=== PATIENT | male | born 1940 | race African-American/Black ===

== ENCOUNTER 2017-09-12 04:18 | Observation (INO) | payer MEDICARE, OTHER ==
--- NOTE | 2017-09-12 05:01 | ER Document Report ---
Doctor's Note Notes: 09/12/17 04:57 I performed a quick triage evaluation the patient. Patient is a pleasant 77- year-old male who initially just tells me that he has hearing loss in left ear they woke up with around 3 AM morning this morning. He went to bed normal around 10 PM. Patient's on exam did not show some signs of little bit of left leg weakness in comparison to the right side. He is hard time telling me whether not this is new. Speech is slightly slow but he is able to make sense and is not quite slurring his words. His family members and walks in the room and tells me that his gait is off, but she is also noticed some left-sided weakness, and that his speech is not normal for him at all. He does have previous history of stroke in the past. He does mention that he did have some numbness when he woke up around 3 AM however this has improved some per his history. Patient is showing some strokelike symptoms however he is outside thrombolytic window. His NIH scale is only a 2. Patient denies any pain at this time. I have ordered a CT scan of the head as well as blood work for initial workup. Cranial nerves are intact with exception of his hearing loss in left ear. Patient has unsteady gait. Patient does walk with a cane at baseline but though family member in the room says that it is more unsteady than usual. 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 He is able to keep both arms and both legs elevated off the bed but he does have some shakiness when he lifts his left leg off the bed and that is obviously weaker on the left side in comparison to the right in regards to his lower extremities. Dictation of this chart was performed using voice recognition software; therefore, there may be some unintended grammatical errors.
--- NOTE | 2017-09-12 05:02 | ER Document Report ---
ED NIH Stroke Scale - NIH Stroke Scale *: 1. NIH scale should be completed with appropriate accompanying assessment tools. *: 2. The NIH should reflect what the patient is capable of doing and should not be coached by the clinician. 1a. Level of Consciousness: 0=Alert;keenly responsive -: 1=Drowsy -: 2=Obtunded -: 3=Coma/unresponsive or reflex to noxious stimuli. 1a. Responses: 0 1b. Orientation Questions: a. What month is it? -: b. How old are you? -: 0=Answers both questions correctly. -: 1=Answers one question correctly or patient is intubated or has orotracheal trauma. -: 2=Answers neither question correctly. 1b. Responses: 0 1c. Response to commands: a. Open and close eyes? -: b. Occupational Hygienist and release hand? -: Credit is given despite weakness. Demonstration of task is permitted. Substitute command if hands cannot be used. -: 0=Performs both tasks correctly -: 1=Performs one task correctly -: 2=Performs neither task correctly 1c. Responses: 0 2. Gaze: Establish eye contact and instruct patient to "Follow my finger" -: 0=Normal -: 1=Partial gaze palsy. Gaze is abnormal in one or both eyes, but where forced deviation or total gaze paresis is not present. -: 2=Forced deviation or total gaze paresis. 2. Responses: 0 3. Visual Hankins: Sees fingers in all four quadrants. -: 0=No visual loss. -: 1=Partial hemianopsia. -: 2=Complete hemianopsia. -: 3=Bilateral hemianopsia (including Cortical blindness) 3. 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 Facial Movement: Instruct patient to: -: a. Show me your teeth -: b. Raise your eyebrows -: c. Close your eyes -: d. Smile -: 0=Normal symmetrical movement -: 1=Minor paralysis (flattened nasolabial fold, asymmetry on smiling). -: 2=Partial paralysis (total or near total paralysis of lower face). -: 3=Complete paralysis of upper and lower face 4. Responses: 0 5. Motor functions (left arm): Alternate sides and extend each arm with palms down (90 degrees if sitting or 45 degrees for supine). -: 0=No drift;limb holds for full 10 seconds. -: 1=Drift; limb holds but drifts down before full 10 seconds, but does not hit bed. -: 2=Some effort against gravity; limb cannot get to or maintain position. -: 3=No effort against gravity; limb falls. -: 4=No movement. -: UN=Amputation, joint fusion, explain in comments. 5. Responses (left arm): 0 5. Motor Functions (right arm): Alternate sides and extend each arm with palms down (90 degrees if sitting or 45 degrees for supine). -: 0=No drift;limb holds for full 10 seconds. -: 1=Drift; limb holds but drifts down before full 10 seconds, but does not hit bed. -: 2=Some effort against gravity; limb cannot get to or maintain position. -: 3=No effort against gravity; limb falls. -: 4=No movement. -: UN=Amputation, joint fusion, explain in comments. 5. Responses (right arm): 0 6. Motor Functions (left leg): With patient lying supine, alternate sides and extend each leg (30 degrees always while supine). -: 0=No drift, leg holds position for full 5 seconds -: 1=Drift; leg falls before full 5 seconds but does not hit bed. -: 2=Some effort against gravity, leg falls to bed but some effort against gravity. -: 3=No effort against gravity, leg falls to bed immediately. -: 4=No movement. -: UN=Amputation, joint fusion; explain in comments. 6. Responses (left leg): 0 6. Motor Functions (right leg): With patient lying supine, alternate sides and extend each leg (30 degrees always while supine). -: 0=No drift, leg holds position for full 5 seconds -: 1=Drift; leg falls before full 5 seconds but does not hit bed. -: 2=Some effort against gravity, leg falls to bed but some effort against gravity. -: 3=No effort against gravity, leg falls to bed immediately. -: 4=No movement. -: UN=Amputation, joint fusion; explain in comments. 6. Responses (right leg): 0 7. Limb Ataxia: With eyes open instruct patient to: -: a. "Touch your finger to your nose". -: b. "Touch your heel to your rizvi" -: 0=Absent -: 1=Present in one limb. -: 2=Present in two limbs. -: UN=Amputation or joint fusion; explain in comments. 7. Responses: 0 8. Sensory: Test sensation using pinprick or noxious stimuli. Test as many body parts as possible. -: 0=Normal;no sensory loss -: 1=Mile to moderate sensory loss (patient feels pin prick but is less sharp on affected side). -: 2=Severe or total sensory loss. 8. Responses: 0 9. Best Language: Instruct patient to: -: a. "Describe what you see in this picture." -: b. "Name the items in this picture." -: c. "Read these sentences." -: 0=No aphasia, normal -: 1=Mild to moderate aphasia. -: 2=Severe aphasia -: 3=Mute, global aphasia, no usable speech or auditory comprehension. 9. Responses: 1 10. Articulation, Dysarthia: Instruct patient to: -: "Read these words" or "Repeat these words" -: 0=Normal -: 1=Mild to moderate; patient may slur some words but can be understood without difficulty. -: 2=Severe; patients speech so slurred as to be unintelligible in the absence of dysphasia. -: UN=Intubated or other physical barrier, explain in comments. 10. Responses: 1 11. Extinction or inattention: 0=No abnormality -: 1= Visual, tactile, auditory, spatial, or personal inattention or extinction to bilateral simulation in one or the sensory modalities. -: 2=Profound cindy-inattention or cindy-inattention to more than one modality; does not recognize own hand. 11. Responses: 0 Total Score: 2
--- NOTE | 2017-09-12 06:06 | RADIOLOGY REPORT (SQ) ---
EXAM DESCRIPTION: CT HEAD WITHOUT IV CONTRAST COMPLETED DATE/TME: 09/12/2017 04:53 CLINICAL HISTORY: 77 years Male, left sided numbness COMPARISON: None. TECHNIQUE: No contrast. Coronal and sagittal reformat. This exam was performed according to our departmental dose-optimization program, which includes automated exposure control, adjustment of the mA and/or kV according to patient size and/or use of iterative reconstruction technique. FINDINGS: No hemorrhage or infarct. No mass, mass effect, or midline shift. Atherosclerosis, moderate left maxillary mucosal occlusion with high attenuation component suggesting fungal superinfection. Decompressed left ocular globe with coarse calcification. 1.7 cm right maxillary retention cyst-mucocele. Brain and extra-axial structures appear otherwise intact. IMPRESSION: Chronic left maxillary sinusitis with fungal superinfection.
[2017-09-12 06:09] LABS: INTERNATIONAL RATION (INR) 0.96; PARTIAL THROMBOPLASTIN TIME 28.9 SEC (23.5-35.8); PROTHROMBIN TIME 13.3 SEC (11.4-15.4)
[2017-09-12 06:21] LABS: ALANINE AMINOTRANSFERASE 24 U/L (21-72); ALBUMIN 3.5 g/dL (3.5-5.0); ALKALINE PHOSPHATASE 55 U/L (38-126); ANION GAP 9 (5-19); ASPARTATE AMINO TRANSFERASE 25 U/L (17-59); BILIRUBIN,DIRECT 0.4 mg/dL (0.0-0.4); BILIRUBIN,TOTAL 0.5 mg/dL (0.2-1.3); BLOOD UREA NITROGEN 36 mg/dL (7-20); CALCIUM 8.6 mg/dL (8.4-10.2); CARBON DIOXIDE 28 mmol/L (22-30); CHLORIDE 106 mmol/L (98-107); GLUCOSE 205 mg/dL (75-110); POTASSIUM 4.2 mmol/L (3.6-5.0); SODIUM 143.4 mmol/L (137-145); TOTAL PROTEIN 7.1 g/dL (6.3-8.2)
--- NOTE | 2017-09-12 06:21 | ER Document Report ---
ED Neuro Symptoms/Deficit - General Chief Complaint: Numbness of Face Stated Complaint: LEFT SIDE NUMB Time Seen by Provider: 09/12/17 04:53 Mode of Arrival: Ambulatory Information source: Patient Notes: 77-year-old male presents emergency department with complaints of left-sided numbness and tingling to the left face, left upper extremity left lower extremity. Patient also complains of left-sided weakness to the left upper extremity and left lower extremity. Patient's significant other is stating that he also has some slurred speech. Patient also notes L hearing loss. Patient states that he went to bed around 10 PM and was normal at that time. He states that he woke up at 3 AM with the symptoms. Patient does have a history of a previous stroke. He states that it affected the right side. He states that he does not take any aspirin. Patient is outside the thrombolytic window. Stroke scale of 2. Denies any pain. TRAVEL OUTSIDE OF THE [place] IN LAST 30 DAYS: No - HPI Patient complains to provider of: Paresthesia, Speech Impairment, Weakness Onset: This morning Awoke with symptoms: Yes Symptoms are: Noted on awakening Duration: Better Quality of pain: No pain Severity: None Pain Level: Denies Context: None Loss of consciousness: No loss of consciousness Was STROKE ALERT Called: No Baseline Cognitive: Alert, oriented X 3 Baseline Gait: Uses a cane/walker Alert To: Name/Voice Patient Orientation: Person New weakness: LUE, LLE Altered sensation: LUE, LLE, L facial Decreased ability to stand/walk: Off balance Impaired speech/swallowing: Difficult Vision problem/glaucoma: No Associated symptoms: None Similar symptoms previously: No Recently seen / treated by doctor: No - Related Data Allergies/Adverse Reactions: No Known Allergies Allergy (Verified 09/12/17 07:07) Past Medical History - Social History Smoking Status: Never Smoker Chew tobacco use (# tins/day): No Frequency of alcohol use: None Drug Abuse: None Family History: Reviewed & Not Pertinent Patient has suicidal ideation: No Patient has homicidal ideation: No - Past Medical History Cardiac Medical History: Reports: Hx Hypertension Denies: Hx Heart Attack Pulmonary Medical History: Denies: Hx Asthma Neurological Medical History: Denies: Hx Cerebrovascular Accident, Hx Seizures Endocrine Medical History: Reports: Hx Diabetes Mellitus Type 2 Renal/ Medical History: Reports: Hx Renal Insufficiency. Denies: Hx Peritoneal Dialysis GI Medical History: Denies: Hx Hepatitis, Hx Hiatal Hernia, Hx Ulcer Infectious Medical History: Denies: Hx Hepatitis Past Surgical History: Denies: Hx Open Heart Surgery, Hx Pacemaker - Immunizations Hx Diphtheria, Pertussis, Tetanus Vaccination: Yes Review of Systems - Review of Systems Constitutional: No symptoms reported EENT: No symptoms reported Cardiovascular: No symptoms reported Respiratory: No symptoms reported Gastrointestinal: No symptoms reported Genitourinary: No symptoms reported Male Genitourinary: No symptoms reported Musculoskeletal: No symptoms reported Skin: No symptoms reported Neurological/Psychological: Weakness, Gait changes, Speech impairment, Numbness -: Yes All other systems reviewed and negative Physical Exam - Vital signs Vitals: Temp Pulse Resp BP Pulse Ox 98.2 F 66 16 148/59 H 99 09/12/17 04:32 09/12/17 04:32 09/12/17 04:32 09/12/17 04:32 09/12/17 04:32 Interpretation: Normal - Notes Notes: PHYSICAL EXAMINATION: GENERAL: Well-appearing, well-nourished and in no acute distress. HEAD: Atraumatic, normocephalic. EYES: Pupils equal round and reactive to light, extraocular movements intact, sclera anicteric, conjunctiva are normal. ENT: Nares patent, oropharynx clear without exudates. Moist mucous membranes. NECK: Normal range of motion, supple without lymphadenopathy LUNGS: Breath sounds clear to auscultation bilaterally and equal. No wheezes rales or rhonchi. HEART: Regular rate and rhythm without murmurs ABDOMEN: Soft, nontender, nondistended abdomen. No guarding, no rebound. No masses appreciated. Musculoskeletal: Normal range of motion, no pitting or edema. No cyanosis. NEUROLOGICAL: Cranial nerves intact except for decreased hearing in the L ear. Significant other notes slurred speech. Normal sensory, motor exams. Cerebellar testing normal. PSYCH: Normal mood, normal affect. SKIN: Warm, Dry, normal turgor, no rashes or lesions noted. Course - Re-evaluation Re-evalutation: 09/12/17 07:[address] shows chronic sinusitis with superimposed fungal infection. On re- evaluation, patient says his symptoms have resolved. No complaints of facial pain. No maxillary sinus tenderness. I contacted Dr. Louis. He would like MRI/ MRA of the head done. Start on augmentin. Hold anti-fungals until MRI/MRA read. He will admit the patient. - Vital Signs Vital signs: Temp Pulse Resp BP Pulse Ox 98.2 F 66 16 148/59 H 99 09/12/17 04:32 09/12/17 04:32 09/12/17 04:32 09/12/17 04:32 09/12/17 04:32 - Laboratory Result Diagrams: 09/12/17 05:54 09/12/17 05:54 Laboratory results interpreted by me: 09/12/17 09/12/17 09/12/17 05:54 05:54 06:06 RBC 4.10 L Hgb 12.7 L Hct 37.1 L RDW 14.7 H BUN 36 H Creatinine 1.83 H Est GFR ( Amer) 44 L Est GFR (Non-Af Amer) 36 L Glucose 205 H Urine Ascorbic Acid 40 H - EKG Interpretation by Me Additional EKG results interpreted by me: 09/12/17 06:35 EKG: Ventricular rate 58, [place] interval 232, castration 114, QTc 433, sinus rhythm , first-degree AV block, left anterior fascicular block. Discharge - Discharge Clinical Impression: TIA (transient ischemic attack), Fungal sinusitis Condition: Stable Disposition: ADMITTED INPATIENT Admitting Provider: Louis Unit Admitted: [facility]
--- NOTE | 2017-09-12 06:28 | RADIOLOGY REPORT (SQ) ---
EXAM DESCRIPTION: XR CHEST 1 VIEW COMPLETED DATE/TME: 09/12/2017 04:54 CLINICAL HISTORY: 77 years Male, stroke like symptoms, weakness COMPARISON: 9.1.16 NUMBER OF VIEWS/TECHNIQUE: 1/AP FINDINGS: Adequate lung volume, clear parenchyma, normal cardiac silhouette, and intact bony thorax. IMPRESSION: No acute cardiopulmonary findings.
[2017-09-12 06:37] LABS: ABSOLUTE LYMPHOCYTES (AUTO) 1.3 10^3/uL (0.5-4.7); ABSOLUTE MONOCYTES (AUTO) 0.4 10^3/uL (0.1-1.4); ABSOLUTE NEUT (AUTO) 5.3 10^3/uL (1.7-8.2); BASOPHILS % (AUTO) 0.3 % (0-2); EOSINOPHILS % (AUTO) 0.5 % (0-6); HEMATOCRIT 37.1 % (37.9-51.0); HEMOGLOBIN 12.7 g/dL (13.5-17.0); LYMPHOCYTES % (AUTO) 18.8 % (13-45); MEAN CORPUSCULAR HEMOGLOBIN 31.1 pg (27.0-33.4); MEAN CORPUSCULAR HGB CONC 34.3 g/dL (32.0-36.0); MEAN CORPUSCULAR VOLUME 91 fl (80-97); MONOCYTES % (AUTO) 6.2 % (3-13); PLATELET COUNT 150 10^3/uL (150-450); RED CELL DISTRIBUTION WIDTH 14.7 % (11.5-14.0); SEGMENTED NEUTROPHILS % (AUTO) 74.2 % (42-78); TOTAL CELLS COUNTED % (AUTO) 100 %; WHITE BLOOD COUNT 7.1 10^3/uL (4.0-10.5)
[2017-09-12 07:00] LABS: APPEARANCE,URINE CLEAR; BILIRUBIN,URINE NEGATIVE (NEGATIVE); COLOR,URINE YELLOW; GLUCOSE, URINE NEGATIVE (NEGATIVE); KETONES,URINE NEGATIVE (NEGATIVE); LEUKOCYTE ESTERASE,URINE NEGATIVE (NEGATIVE); NITRITE,URINE NEGATIVE (NEGATIVE); PROTEIN,URINE NEGATIVE (NEGATIVE); URINE SPECIFIC GRAVITY 1.017; UROBILINOGEN,URINE NEGATIVE mg/dL (<2.0)
[2017-09-12] MEDS ORDERED: AMOXICILLIN TR/POT CLAVULANATE 500-125 MG TAB PO ONE (08:05)
[2017-09-12] MEDS ORDERED: ACETAMINOPHEN 325 MG TABLET PO PRN (10:17)
--- NOTE | 2017-09-12 10:36 | EKG REPORT ---
SEVERITY:- ABNORMAL ECG - SINUS RHYTHM FIRST DEGREE AV BLOCK LEFT ANTERIOR FASCICULAR BLOCK : Confirmed by: Cas Simeon MD 12-Sep-2017 10:36:05
[2017-09-12] MEDS ORDERED: INSULIN LISPRO 100 UNIT/ML 3 ML VIAL SUBCUT PRN (10:59)
[2017-09-12] MEDS ORDERED: DEXTROSE 50%-WATER 25 GM/50 ML DISP.SYRIN IV PRN ×2 (10:59)
[2017-09-12] MEDS ORDERED: GLUCAGON,HUMAN RECOMB 1 MG INJ IM PRN (10:59)
[2017-09-12] MEDS ORDERED: DEXTROSE 40% GEL 15 GM TUBE PO PRN ×2 (10:59)
--- NOTE | 2017-09-12 11:08 | PDOC H&P ---
History of Present Illness Admission Date/PCP: 09/12/17 07:57 YO CHINCHILLA MD Patient complains of: Left-sided tingling and numbness History of Present Illness: NAN SUAZO is a 77 year old male This is a 77-year-old male patient of Dr. Chinchilla with the history of the hypertension type 2 diabetes mellitus chronic kidney disease in the history of the TIA in the past noticed at 3:00 in the morning on the left side of the face with a tingling numbness and some fullness and according to the patient his noticed that patient's speech is slower and patients noticed some weakness in the left side came to the emergency department on the patient's symptoms pretty much all resolved except patient's noticed some fullness in the left side of the face Patient had a CT scan of the head was done which is negative for any acute stroke but noticed some left chronic sinus problem with some superinfections and mastoid issues Patient's denied any fever no chills Patient's denied any chest pain no shortness of the breath Is denied any eye problems except patient have a very poor vision on the left side of the eye from the long time but nothing new Patient's other than that when I saw on the floor in IMCU very pleasant alert awake oriented no neurological weakness Past Medical History Cardiac Medical History: Reports: Hypertension Denies: Myocardial Infarction Pulmonary Medical History: Denies: Asthma Neurological Medical History: Reports: Ischemic CVA Denies: Seizures Endocrine Medical History: Reports: Diabetes Mellitus Type 2 Renal/ Medical History: Reports: Chronic Kidney Disease GI Medical History: Reports: Gastroesophageal Reflux Disease Denies: Hepatitis, Hiatal Hernia Hematology: Denies: Anemia, Sickle Cell Disease Past Surgical History Past Surgical History: Denies: Pacemaker Social History Smoking Status: Never Smoker Frequency of Alcohol Use: None Hx Recreational Drug Use: No Hx Prescription Drug Abuse: No - Advance Directive Resuscitation Status: Full Code Family History Family History: Reviewed & Not Pertinent Parental Family History Reviewed: Yes Children Family History Reviewed: Yes Sibling(s) Family History Reviewed.: Yes Medication/Allergy Home Medications: Brimonidine Tartrate/Timolol [Combigan 0.2%-0.5% Eye Drops] 1 drop OD Q12 Carvedilol [Coreg 12.5 mg Tablet] 12.5 mg PO Q12 09/12/17 Ergocalciferol (Vitamin D2) [Vitamin D2] 50,000 unit PO TU@1000 09/12/17 Febuxostat [Uloric 80 mg Tablet] 80 mg PO DAILY 09/12/17 Furosemide [Lasix 40 mg Tablet] 40 mg PO QAM 09/12/17 Latanoprost [Xalatan 0.005% Oph Soln 2.5 ml] 1 drop OD QPM 09/12/17 Losartan/Hydrochlorothiazide [Losartan-Hctz 100-25 mg Tab] 1 tab PO DAILY Pioglitazone HCl [Actos] 45 mg PO DAILY 09/12/17 Sitagliptin Phosphate [Januvia] 100 mg PO DAILY 09/12/17 Allergies/Adverse Reactions: No Known Allergies Allergy (Verified 09/12/17 07:07) Review of Systems Constitutional: PRESENT: weakness. ABSENT: chills, fever(s), headache(s), weight gain, weight loss Eyes: ABSENT: visual disturbances Ears: ABSENT: hearing changes Cardiovascular: ABSENT: chest pain, dyspnea on exertion, edema, orthropnea, palpitations Respiratory: ABSENT: cough, hemoptysis Gastrointestinal: ABSENT: abdominal pain, constipation, diarrhea, hematemesis, hematochezia, nausea, vomiting Genitourinary: ABSENT: dysuria, hematuria Musculoskeletal: ABSENT: joint swelling Integumentary: ABSENT: rash, wounds Neurological: ABSENT: abnormal gait, abnormal speech, confusion, dizziness, focal weakness, syncope Psychiatric: ABSENT: anxiety, depression, homidical ideation, suicidal ideation Endocrine: ABSENT: cold intolerance, heat intolerance, menstrual abnormalities, polydipsia, polyuria Hematologic/Lymphatic: ABSENT: easy bleeding, easy bruising, lymphadenopathy Physical Exam Vital Signs: Temp Pulse Resp BP Pulse Ox 98.4 F 56 L 13 147/69 H 100 09/12/17 10:45 09/12/17 10:45 09/12/17 10:45 09/12/17 10:45 09/12/17 10:45 Intake & Output 09/11/17 09/12/17 09/13/17 06:59 06:59 06:59 Weight 122.8 kg General appearance: PRESENT: no acute distress, well-developed, well-nourished Head exam: PRESENT: atraumatic, normocephalic Eye exam: PRESENT: conjunctiva pink, EOMI, PERRLA. ABSENT: scleral icterus Ear exam: PRESENT: normal external ear exam Mouth exam: PRESENT: moist, tongue midline Neck exam: PRESENT: full ROM. ABSENT: carotid bruit, JVD, lymphadenopathy, thyromegaly Respiratory exam: PRESENT: clear to auscultation manisha Cardiovascular exam: PRESENT: RRR. ABSENT: diastolic murmur, rubs, systolic murmur Pulses: PRESENT: normal dorsalis pedis pul, +2 pedal pulses bilateral Vascular exam: PRESENT: normal capillary refill GI/Abdominal exam: PRESENT: normal bowel sounds, soft. ABSENT: distended, guarding, mass, organolmegaly, rebound, tenderness Rectal exam: PRESENT: deferred Extremities exam: ABSENT: pedal edema Musculoskeletal exam: PRESENT: ambulatory Neurological exam: PRESENT: alert, awake, oriented to person, oriented to place , oriented to time, oriented to situation, reflexes normal, CN II-XII grossly intact. ABSENT: motor sensory deficit Psychiatric exam: PRESENT: appropriate affect, normal mood. ABSENT: homicidal ideation, suicidal ideation Skin exam: PRESENT: dry, intact, warm. ABSENT: cyanosis, rash Results Impressions: Head CT 09/12/17 04:53 IMPRESSION: Chronic left maxillary sinusitis with fungal superinfection. Chest X-Ray 09/12/17 04:54 IMPRESSION: No acute cardiopulmonary findings. Assessment & Plan - Diagnosis (1) TIA (transient ischemic attack) Is this a current diagnosis for this admission?: Yes Plan: Patient's current symptoms pretty much resolved not sure the symptoms is confirmed TIA versus patient have a this mastoiditis sinusitis We will keep the patient on the TIA protocol Start the patient on aspirin and Plavix Get the MRI of the head and MRA of the head (2) Hypertension Qualifiers: Hypertension type: essential hypertension Qualified Code(s): I10 - Essential (primary) hypertension Is this a current diagnosis for this admission?: Yes Plan: Continues to current medication (3) Hyperlipidemia Qualifiers: Hyperlipidemia type: unspecified Qualified Code(s): E78.5 - Hyperlipidemia , unspecified Is this a current diagnosis for this admission?: Yes Plan: The patient on the Lipitor 40 mg p.o. daily (4) Chronic kidney disease Qualifiers: Chronic kidney disease stage: stage 3 (moderate) Qualified Code(s): N18.3 - Chronic kidney disease, stage 3 (moderate) Is this a current diagnosis for this admission?: Yes Plan: Currently all stable (5) Fungal sinusitis Is this a current diagnosis for this admission?: Yes Plan: Start the patient on Augmentin consult the ENT for further evaluations (6) Type 2 diabetes mellitus Qualifiers: Diabetes mellitus mcc insulin use: without mcc use Chronic kidney disease stage: stage 3 (moderate) Is this a current diagnosis for this admission?: Yes Plan: Continues to sliding scale and current medications - Time Time Spent: 50 to 70 Minutes Medications reviewed and adjusted accordingly: Yes Anticipated discharge: Home Within: Other - Inpatient Certification Medical Necessity: Need Close Monitoring Due to Risk of Patient Decompensation 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
[2017-09-12] MEDS ORDERED: HYDROCODONE/ACETAMINOPHEN 7.5-325 MG TABLET PO PRN (11:12)
--- NOTE | 2017-09-12 11:15 | RADIOLOGY REPORT (SQ) ---
EXAM DESCRIPTION: MRA HEAD WITHOUT; MRI HEAD WITHOUT COMPLETED DATE/TIME: 09/12/2017 10:19 am REASON FOR STUDY: fungal sinusitis COMPARISON: None. TECHNIQUE: Multiplanar imaging includes non-contrasted T1, T2, FLAIR, and diffusion with ADC map seq uences. Images stored on PACS. [place] MRA exam was performed with 3D [id number]. Acquisition images and re- projected maximum intensity images were reviewed, saved to pac's LIMITATIONS: None. FINDINGS: ANATOMY: No anomalies. Normal vascular flow voids. Pituitary fossa normal. CSF SPACES: Normal in size and contour. No hemorrhage. CEREBRUM: Sulci and gyri normal in size and contour. Normal white matter signal on FLAIR imaging. No evidence of hemorrhage, mass, or extraaxial fluid collection. POSTERIOR FOSSA: No posterior fossa acute ischemic change. No hemorrhage. No edema, masses or mass ef fect. Internal auditory canals, cerebello-pontine angles, mastoids normal. DIFFUSION IMAGING: Negative for acute or sub-acute infarction. ORBITS: Old trauma left globe. Post right cataract surgery. PARANASAL SINUSES: Opacified left maxillary sinus from chronic inflammatory change. [place] MRA: Right vertebral artery at the skullbase demonstrates no flow. Left vertebral a rtery patent. 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 Basilar artery is diffusely small. There is origin of both posterior cerebral arteries which demonstrate good flow signal. Anterior circulation is unremarkable. No [place] vascular malformation or aneurysm. IMPRESSION: No MR evidence of acute ischemic change, acute intracranial hemorrhage, mass effect, or midline shift. origin of both posterior cerebral arteries. Right vertebral artery demonstrates no evidence of flow at the skullbase. Left vertebral artery flow s into a diffusely small basilar loop with two approximate 50% tandem stenoses. EVIDENCE OF ACUTE STROKE: NO. TECHNICAL DOCUMENTATION: JOB ID: [id number] [facility]- All Rights Reserved Reading location - IP/workstation name: [email or web address]
--- NOTE | 2017-09-12 11:15 | RADIOLOGY REPORT (SQ) ---
EXAM DESCRIPTION: MRA HEAD WITHOUT; MRI HEAD WITHOUT COMPLETED DATE/TIME: 09/12/2017 10:19 am REASON FOR STUDY: fungal sinusitis COMPARISON: None. TECHNIQUE: Multiplanar imaging includes non-contrasted T1, T2, FLAIR, and diffusion with ADC map seq uences. Images stored on PACS. [place] MRA exam was performed with 3D [id number]. Acquisition images and re- projected maximum intensity images were reviewed, saved to pac's LIMITATIONS: None. FINDINGS: ANATOMY: No anomalies. Normal vascular flow voids. Pituitary fossa normal. CSF SPACES: Normal in size and contour. No hemorrhage. CEREBRUM: Sulci and gyri normal in size and contour. Normal white matter signal on FLAIR imaging. No evidence of hemorrhage, mass, or extraaxial fluid collection. POSTERIOR FOSSA: No posterior fossa acute ischemic change. No hemorrhage. No edema, masses or mass ef fect. Internal auditory canals, cerebello-pontine angles, mastoids normal. DIFFUSION IMAGING: Negative for acute or sub-acute infarction. ORBITS: Old trauma left globe. Post right cataract surgery. PARANASAL SINUSES: Opacified left maxillary sinus from chronic inflammatory change. [place] MRA: Right vertebral artery at the skullbase demonstrates no flow. Left vertebral a rtery patent. 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 Basilar artery is diffusely small. There is origin of both posterior cerebral arteries which demonstrate good flow signal. Anterior circulation is unremarkable. No [place] vascular malformation or aneurysm. IMPRESSION: No MR evidence of acute ischemic change, acute intracranial hemorrhage, mass effect, or midline shift. origin of both posterior cerebral arteries. Right vertebral artery demonstrates no evidence of flow at the skullbase. Left vertebral artery flow s into a diffusely small basilar loop with two approximate 50% tandem stenoses. EVIDENCE OF ACUTE STROKE: NO. TECHNICAL DOCUMENTATION: JOB ID: [id number] [employer]- All Rights Reserved Reading location - IP/workstation name: [email or web address]
[2017-09-12] MEDS ORDERED: ENOXAPARIN SODIUM INJ 40 MG/0.4 ML DISP.SYRIN SUBCUT ONE (11:30)
[2017-09-12] MEDS ORDERED: HYDROCHLOROTHIAZIDE 25 MG TABLET PO ONE (12:00)
[2017-09-12] MEDS ORDERED: SITAGLIPTIN PHOSPHATE 50 MG TABLET PO ONE (12:00)
[2017-09-12] MEDS ORDERED: PIOGLITAZONE HCL 30 MG TABLET PO ONE (12:00)
[2017-09-12] MEDS ORDERED: LOSARTAN POTASSIUM 50 MG TABLET PO ONE (12:00)
[2017-09-12] MEDS: AMOXICILLIN TR/POT CLAVULANATE 500-125 MG TAB PO SCH ×2 (13:42→21:45)
[2017-09-12 13:49] LABS: CREATINE KINASE MB 0.56 ng/mL (<4.55)
[2017-09-12 13:51] LABS: TROPONIN I < 0.012 ng/mL
[2017-09-12] MEDS: LATANOPROST 0.005% OPH SOLN 2.5 ML OD SCH (17:58)
[2017-09-12 18:59] LABS: CREATINE KINASE MB 0.51 ng/mL (<4.55)
[2017-09-12 19:04] LABS: TROPONIN I < 0.012 ng/mL
[2017-09-12] MEDS: TIMOLOL MALEATE 0.5% OPH SOLN 5 ML OD SCH (21:45)
[2017-09-12] MEDS: CARVEDILOL 12.5 MG TABLET PO SCH (21:45)
[2017-09-12] MEDS: ATORVASTATIN CALCIUM 40 MG TABLET PO SCH (21:45)
[2017-09-12] MEDS: BRIMONIDINE TARTRATE 0.2% OPH SOLN 5 ML OD SCH (21:46)
[2017-09-12 23:10] LABS: CREATINE KINASE MB 0.41 ng/mL (<4.55); TROPONIN I < 0.012 ng/mL
[2017-09-13 05:21] LABS: ABSOLUTE EOSINOPHILS # (AUTO) 0.1 10^3/uL (0.0-0.6); ABSOLUTE LYMPHOCYTES (AUTO) 2.1 10^3/uL (0.5-4.7); ABSOLUTE MONOCYTES (AUTO) 0.5 10^3/uL (0.1-1.4); ABSOLUTE NEUT (AUTO) 3.2 10^3/uL (1.7-8.2); BASOPHILS % (AUTO) 0.1 % (0-2); EOSINOPHILS % (AUTO) 1.4 % (0-6); HEMATOCRIT 34.8 % (37.9-51.0); LYMPHOCYTES % (AUTO) 35.7 % (13-45); MEAN CORPUSCULAR HEMOGLOBIN 31.2 pg (27.0-33.4); MEAN CORPUSCULAR HGB CONC 34.4 g/dL (32.0-36.0); MEAN CORPUSCULAR VOLUME 91 fl (80-97); MONOCYTES % (AUTO) 7.7 % (3-13); PLATELET COUNT 133 10^3/uL (150-450); RED BLOOD COUNT 3.83 10^6/uL (4.35-5.55); RED CELL DISTRIBUTION WIDTH 14.7 % (11.5-14.0); SEGMENTED NEUTROPHILS % (AUTO) 55.1 % (42-78); TOTAL CELLS COUNTED % (AUTO) 100 %; WHITE BLOOD COUNT 5.9 10^3/uL (4.0-10.5)
[2017-09-13 05:48] LABS: ALANINE AMINOTRANSFERASE 24 U/L (21-72); ALKALINE PHOSPHATASE 50 U/L (38-126); ANION GAP 9 (5-19); ASPARTATE AMINO TRANSFERASE 21 U/L (17-59); BILIRUBIN,DIRECT 0.4 mg/dL (0.0-0.4); BILIRUBIN,TOTAL 0.4 mg/dL (0.2-1.3); BLOOD UREA NITROGEN 34 mg/dL (7-20); CALCIUM 8.5 mg/dL (8.4-10.2); CARBON DIOXIDE 26 mmol/L (22-30); CHLORIDE 107 mmol/L (98-107); GLUCOSE 124 mg/dL (75-110); POTASSIUM 4.1 mmol/L (3.6-5.0); SODIUM 141.7 mmol/L (137-145)
[2017-09-13] MEDS: AMOXICILLIN TR/POT CLAVULANATE 500-125 MG TAB PO SCH ×3 (06:20→21:19)
[2017-09-13] MEDS ORDERED: DEXTROSE 50%-WATER 25 GM/50 ML DISP.SYRIN IV PRN ×2 (08:58)
[2017-09-13] MEDS ORDERED: GLUCAGON,HUMAN RECOMB 1 MG INJ IM PRN (08:58)
[2017-09-13] MEDS ORDERED: DEXTROSE 40% GEL 15 GM TUBE PO PRN ×2 (08:58)
[2017-09-13] MEDS: INSULIN DETEMIR 100 UNIT/ML 3 ML PEN SUBCUT SCH (09:58)
[2017-09-13] MEDS: CLOPIDOGREL BISULFATE 75 MG TABLET PO SCH (09:59)
[2017-09-13] MEDS: PIOGLITAZONE HCL 30 MG TABLET PO SCH (09:59)
[2017-09-13] MEDS: ENOXAPARIN SODIUM INJ 40 MG/0.4 ML DISP.SYRIN SUBCUT SCH (09:59)
[2017-09-13] MEDS: LOSARTAN POTASSIUM 50 MG TABLET PO SCH (10:00)
[2017-09-13] MEDS ORDERED: (PENDING PHARMACY ID) (Pioglitazone Hcl [Actos] 45 MG) PO SCH (10:00)
[2017-09-13] MEDS: FUROSEMIDE 40 MG TABLET PO SCH (10:00)
[2017-09-13] MEDS ORDERED: (PENDING PHARMACY ID) (Losartan/Hydrochlorothiazide [Losartan-Hctz 100-25 Mg Tab] 1 TAB) PO SCH (10:00)
[2017-09-13] MEDS: FEBUXOSTAT 80 MG TABLET PO SCH (10:01)
[2017-09-13] MEDS: ASPIRIN 81 MG TABLET, ENT COATED PO SCH (10:01)
[2017-09-13] MEDS: SITAGLIPTIN PHOSPHATE 50 MG TABLET PO SCH (10:01)
[2017-09-13] MEDS: HYDROCHLOROTHIAZIDE 25 MG TABLET PO SCH (10:02)
[2017-09-13] MEDS: CARVEDILOL 12.5 MG TABLET PO SCH ×2 (10:02→21:18)
[2017-09-13] MEDS: BRIMONIDINE TARTRATE 0.2% OPH SOLN 5 ML OD SCH ×2 (10:02→21:19)
[2017-09-13] MEDS: TIMOLOL MALEATE 0.5% OPH SOLN 5 ML OD SCH ×2 (10:03→21:19)
--- NOTE | 2017-09-13 10:12 | PDOC PROGRESS REPORT ---
Subjective Progress Note for:: 09/13/17 Subjective:: It is currently doing well Patient's denied any tingling numbness Patient's denied any chest pain denied any shortness of the breath Patient MRI of the head was negative for any acute stroke but there was some questionable vertebral artery stenosis Reason For Visit: CVA/WEAKNESS Physical Exam Vital Signs: Temp Pulse Resp BP Pulse Ox 97.8 F 58 L 12 123/60 100 09/13/17 07:25 09/13/17 08:00 09/13/17 08:00 09/13/17 08:00 09/13/17 08:00 Intake & Output 09/12/17 09/13/17 09/14/17 06:59 06:59 06:59 Intake Total 1295 Balance 1295 Weight 273.8 kg General appearance: PRESENT: no acute distress, well-developed, well-nourished Head exam: PRESENT: atraumatic, normocephalic Eye exam: PRESENT: conjunctiva pink, EOMI, PERRLA. ABSENT: scleral icterus Ear exam: PRESENT: normal external ear exam Mouth exam: PRESENT: moist, tongue midline Neck exam: PRESENT: full ROM. ABSENT: carotid bruit, JVD, lymphadenopathy, thyromegaly Respiratory exam: PRESENT: clear to auscultation manisha Cardiovascular exam: PRESENT: RRR. ABSENT: diastolic murmur, rubs, systolic murmur Pulses: PRESENT: normal dorsalis pedis pul, +2 pedal pulses bilateral Vascular exam: PRESENT: normal capillary refill GI/Abdominal exam: PRESENT: normal bowel sounds, soft. ABSENT: distended, guarding, mass, organolmegaly, rebound, tenderness Rectal exam: PRESENT: deferred Extremities exam: ABSENT: pedal edema Musculoskeletal exam: PRESENT: ambulatory Neurological exam: PRESENT: alert, awake, oriented to person, oriented to place , oriented to time, oriented to situation, CN II-XII grossly intact. ABSENT: motor sensory deficit Psychiatric exam: PRESENT: appropriate affect, normal mood. ABSENT: homicidal ideation, suicidal ideation Skin exam: PRESENT: dry, intact, warm. ABSENT: cyanosis, rash Results Laboratory Results: 09/13/17 04:30 09/13/17 04:30 09/13/17 09/13/17 04:30 04:30 WBC 5.9 RBC 3.83 L Hgb 12.0 L Hct 34.8 L MCV 91 MCH 31.2 MCHC 34.4 RDW 14.7 H Plt Count 133 L Seg Neutrophils % 55.1 Lymphocytes % 35.7 Monocytes % 7.7 Eosinophils % 1.4 Basophils % 0.1 Absolute Neutrophils 3.2 Absolute Lymphocytes 2.1 Absolute Monocytes 0.5 Absolute Eosinophils 0.1 Absolute Basophils 0.0 Sodium 141.7 Potassium 4.1 Chloride 107 Carbon Dioxide 26 Anion Gap 9 BUN 34 H Creatinine 1.97 H Est GFR ( Amer) 40 L Est GFR (Non-Af Amer) 33 L Glucose 124 H Calcium 8.5 Total Bilirubin 0.4 AST 21 ALT 24 Alkaline Phosphatase 50 Total Protein 6.0 L Albumin 3.0 L 09/12/17 09/12/17 09/12/17 12:44 12:44 17:45 Creatine Kinase 74 71 CK-MB (CK-2) 0.56 Troponin I < 0.012 09/12/17 09/12/17 09/12/17 17:45 22:35 22:35 Creatine Kinase 73 CK-MB (CK-2) 0.51 0.41 Troponin I < 0.012 < 0.012 Impressions: Head CT 09/12/17 04:53 IMPRESSION: Chronic left maxillary sinusitis with fungal superinfection. Chest X-Ray 09/12/17 04:54 IMPRESSION: No acute cardiopulmonary findings. Head MRI 09/12/17 08:00 IMPRESSION: No MR evidence of acute ischemic change, acute intracranial hemorrhage, mass effect, or midline shift. origin of both posterior cerebral arteries. Right vertebral artery demonstrates no evidence of flow at the skullbase. Left vertebral artery flows into a diffusely small basilar loop with two approximate 50% tandem stenoses. EVIDENCE OF ACUTE STROKE: NO. Brain MRI with MRA 09/12/17 08:01 IMPRESSION: No MR evidence of acute ischemic change, acute intracranial hemorrhage, mass effect, or midline shift. origin of both posterior cerebral arteries. Right vertebral artery demonstrates no evidence of flow at the skullbase. Left vertebral artery flows into a diffusely small basilar loop with two approximate 50% tandem stenoses. EVIDENCE OF ACUTE STROKE: NO. Assessment & Plan - Diagnosis (1) TIA (transient ischemic attack) Is this a current diagnosis for this admission?: Yes Plan: Patient's current symptoms pretty much resolved not sure the symptoms is confirmed TIA versus patient have a this mastoiditis sinusitis We will keep the patient on the TIA protocol Start the patient on aspirin and Plavix Get the MRI of the head and MRA of the head (2) Hypertension Qualifiers: Hypertension type: essential hypertension Qualified Code(s): I10 - Essential (primary) hypertension Is this a current diagnosis for this admission?: Yes Plan: Continues to current medication (3) Hyperlipidemia Qualifiers: Hyperlipidemia type: unspecified Qualified Code(s): E78.5 - Hyperlipidemia , unspecified Is this a current diagnosis for this admission?: Yes Plan: The patient on the Lipitor 40 mg p.o. daily (4) Chronic kidney disease Qualifiers: Chronic kidney disease stage: stage 3 (moderate) Qualified Code(s): N18.3 - Chronic kidney disease, stage 3 (moderate) Is this a current diagnosis for this admission?: Yes Plan: Currently all stable (5) Fungal sinusitis Is this a current diagnosis for this admission?: Yes Plan: Wait for the ENT evaluations (6) Type 2 diabetes mellitus Qualifiers: Diabetes mellitus supervisor intermediates insulin use: without snf use Chronic kidney disease stage: stage 3 (moderate) Is this a current diagnosis for this admission?: Yes Plan: Continues to sliding scale and current medications - Time Time Spent with patient: 15-24 minutes Medications reviewed and adjusted accordingly: Yes Anticipated discharge: Other Within: Other - Inpatient Certification Medical Necessity: Need Close Monitoring Due to Risk of Patient Decompensation Post Hospital Care: D/C Furn[employer] Documentation - Plan Summary Plan Summary: Will wait for the carotid Doppler and echocardiogram report discussed with the patient and the family about the MRI finding probably need a vascular surgery evaluations patients currently stable
[2017-09-13] MEDS: LATANOPROST 0.005% OPH SOLN 2.5 ML OD SCH (17:21)
[2017-09-13] MEDS: ATORVASTATIN CALCIUM 40 MG TABLET PO SCH (21:18)
[2017-09-14 05:03] LABS: ABSOLUTE EOSINOPHILS # (AUTO) 0.1 10^3/uL (0.0-0.6); ABSOLUTE LYMPHOCYTES (AUTO) 1.8 10^3/uL (0.5-4.7); ABSOLUTE MONOCYTES (AUTO) 0.5 10^3/uL (0.1-1.4); ABSOLUTE NEUT (AUTO) 3.2 10^3/uL (1.7-8.2); BASOPHILS % (AUTO) 0.4 % (0-2); EOSINOPHILS % (AUTO) 1.7 % (0-6); HEMATOCRIT 36.8 % (37.9-51.0); HEMOGLOBIN 12.6 g/dL (13.5-17.0); MEAN CORPUSCULAR HGB CONC 34.3 g/dL (32.0-36.0); MEAN CORPUSCULAR VOLUME 90 fl (80-97); MONOCYTES % (AUTO) 8.4 % (3-13); PLATELET COUNT 134 10^3/uL (150-450); RED BLOOD COUNT 4.06 10^6/uL (4.35-5.55); RED CELL DISTRIBUTION WIDTH 14.6 % (11.5-14.0); SEGMENTED NEUTROPHILS % (AUTO) 57.5 % (42-78); TOTAL CELLS COUNTED % (AUTO) 100 %; WHITE BLOOD COUNT 5.5 10^3/uL (4.0-10.5)
[2017-09-14 05:41] LABS: ALANINE AMINOTRANSFERASE 28 U/L (21-72); ALBUMIN 3.1 g/dL (3.5-5.0); ALKALINE PHOSPHATASE 47 U/L (38-126); ANION GAP 10 (5-19); ASPARTATE AMINO TRANSFERASE 20 U/L (17-59); BILIRUBIN,DIRECT 0.3 mg/dL (0.0-0.4); BLOOD UREA NITROGEN 37 mg/dL (7-20); CALCIUM 8.6 mg/dL (8.4-10.2); CARBON DIOXIDE 26 mmol/L (22-30); CHLORIDE 105 mmol/L (98-107); GLUCOSE 132 mg/dL (75-110); SODIUM 141.1 mmol/L (137-145); TOTAL PROTEIN 6.3 g/dL (6.3-8.2)
[2017-09-14] MEDS: AMOXICILLIN TR/POT CLAVULANATE 500-125 MG TAB PO SCH ×2 (06:27→13:47)
[2017-09-14 08:00] LABS: BILIRUBIN,TOTAL 0.6 mg/dL (0.2-1.3)
[2017-09-14] MEDS: FUROSEMIDE 40 MG TABLET PO SCH (08:24)
[2017-09-14] MEDS: SITAGLIPTIN PHOSPHATE 50 MG TABLET PO SCH (10:24)
[2017-09-14] MEDS: HYDROCHLOROTHIAZIDE 25 MG TABLET PO SCH (10:31)
[2017-09-14] MEDS: CARVEDILOL 12.5 MG TABLET PO SCH (10:31)
[2017-09-14] MEDS: CLOPIDOGREL BISULFATE 75 MG TABLET PO SCH (10:31)
[2017-09-14] MEDS: ASPIRIN 81 MG TABLET, ENT COATED PO SCH (10:31)
[2017-09-14] MEDS: LOSARTAN POTASSIUM 50 MG TABLET PO SCH (10:32)
[2017-09-14] MEDS: ENOXAPARIN SODIUM INJ 40 MG/0.4 ML DISP.SYRIN SUBCUT SCH (10:32)
[2017-09-14] MEDS: FEBUXOSTAT 80 MG TABLET PO SCH (10:34)
[2017-09-14] MEDS: BRIMONIDINE TARTRATE 0.2% OPH SOLN 5 ML OD SCH (10:35)
[2017-09-14] MEDS: TIMOLOL MALEATE 0.5% OPH SOLN 5 ML OD SCH (10:36)
[2017-09-14] MEDS: INSULIN DETEMIR 100 UNIT/ML 3 ML PEN SUBCUT SCH (10:36)
[2017-09-14] MEDS: PIOGLITAZONE HCL 30 MG TABLET PO SCH (10:41)
--- NOTE | 2017-09-14 15:59 | RADIOLOGY REPORT (SQ) ---
EXAM DESCRIPTION: CAROTID DOPPLER COMPLETED DATE/TIME: 09/14/2017 1:22 pm REASON FOR STUDY: tia COMPARISON: None. TECHNIQUE: Grayscale ultrasound, Doppler velocity and spectra, and color Doppler images acquired of the extra-cranial carotid and vertebral arteries. Images stored on PACS. LIMITATIONS: None. FINDINGS: RIGHT CAROTID CCA Velocities: 144 centimeters/second proximally ; 112 centimeters/second distally ICA Velocities Peak systolic 86 cm/s. End diastolic 16 cm/s. Proximal ICA/CCA peak systolic ratio 0.7. Spectra normal. No significant plaque. LEFT CAROTID CCA Velocities: 82 centimeters/second ICA Velocities Peak systolic 72 cm/s. End diastolic 18 cm/s. Proximal ICA/CCA peak systolic ratio 0.8. Spectra normal. No significant plaque. VERTEBRAL ARTERIES: Antegrade flow. Normal waveforms. SUBCLAVIAN ARTERIES: No finding. OTHER: No other significant finding. IMPRESSION: No hemodynamically significant stenosis. There is slight increase in velocity in the pr oximal right common carotid artery. COMMENT: Quality ID #[id number]: Velocity criteria are extrapolated from the diameter data as defined by t he Society of Radiologists in Ultrasound Consensus Conference. Radiology 2003: 229; 340-346. TECHNICAL DOCUMENTATION: JOB ID: [id number] [employer]- All Rights Reserved Reading location - IP/workstation name: [email or web address]
--- NOTE | 2017-09-14 17:35 | PDOC DISCHARGE SUMMARY ---
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 Is this a current diagnosis for this admission?: Yes (2) Chronic left maxillary sinusitis Is this a current diagnosis for this admission?: Yes (3) Chronic kidney disease, stage 3 Is this a current diagnosis for this admission?: Yes (4) TIA (transient ischemic attack) Is this a current diagnosis for this admission?: Yes (5) Type 2 diabetes mellitus Is this a current diagnosis for this admission?: Yes - Additional Information Resuscitation Status: Full Code Prescriptions: Atorvastatin Calcium [Lipitor 40 mg Tablet] 80 mg PO QHS #90 tablet Amoxicillin 250 mg PO Q8H #63 ml Home Medications: Brimonidine Tartrate/Timolol [Combigan 0.2%-0.5% Eye Drops] 1 drop OD Q12 Carvedilol [Coreg 12.5 mg Tablet] 12.5 mg PO Q12 09/12/17 Ergocalciferol (Vitamin D2) [Vitamin D2] 50,000 unit PO TU@1000 09/12/17 Febuxostat [Uloric 80 mg Tablet] 80 mg PO DAILY 09/12/17 Furosemide [Lasix 40 mg Tablet] 40 mg PO QAM 09/12/17 Hydrocodone/Acetaminophen [Hydrocodone-Acetamin 7.5-325] 1 tab PO TIDP PRN 09/12 Latanoprost [Xalatan 0.005% Oph Soln 2.5 ml] 1 drop OD QPM 09/12/17 Losartan/Hydrochlorothiazide [Losartan-Hctz 100-25 mg Tab] 1 tab PO DAILY Pioglitazone HCl [Actos] 45 mg PO DAILY 09/12/17 Sitagliptin Phosphate [Januvia] 100 mg PO DAILY 09/12/17 Amoxicillin 250 mg PO Q8H #63 ml 09/14/17 Atorvastatin Calcium [Lipitor 40 mg Tablet] 80 mg PO QHS #90 tablet 09/14/17 History of Present Illness History of Present Illness: NAN SUAZO is a 77 year old male, he came to the emergency room for evaluation of sudden onset hearing loss of the left ear with facial numbness, he was diagnosed with TIA and admitted for management Hospital Course Hospital Course: Patient was admitted for the management of TIA, MRI/MRA head was done, it demonstrated opacification of the left maxillary sinus from chronic inflammatory change also found was no flow in the right vertebral artery this is an incidental finding, patient's symptoms is made on the left side of his face. He was seen this afternoon, there is no focal deficits, I explained to him the findings on the MRI and MRA of the head, he will be referred to vascular surgery outpatient I am not definitively sure if any intervention is warranted or indicated, he will require high doses statin. He has underlining chronic kidney disease stage III, diabetes mellitus type 2 Physical Exam Vital Signs: Temp Pulse Resp BP Pulse Ox 98.0 F 64 18 123/55 L 100 09/14/17 12:20 09/14/17 14:00 09/14/17 12:20 09/14/17 12:20 09/14/17 12:20 Intake & Output 09/13/17 09/14/17 09/15/17 06:59 06:59 06:59 Intake Total 1295 2092 1425 Balance 1295 2092 1425 Weight 273.8 kg 269.7 kg General appearance: PRESENT: no acute distress, well-developed, well-nourished Head exam: PRESENT: atraumatic, normocephalic Eye exam: PRESENT: conjunctiva pink, EOMI, PERRLA Ear exam: PRESENT: normal external ear exam Mouth exam: PRESENT: moist, tongue midline Neck exam: PRESENT: full ROM Respiratory exam: PRESENT: clear to auscultation manisha Cardiovascular exam: PRESENT: RRR, +S1, +S2 Pulses: PRESENT: normal dorsalis pedis pul, +2 pedal pulses bilateral Vascular exam: PRESENT: normal capillary refill GI/Abdominal exam: PRESENT: normal bowel sounds, soft Rectal exam: PRESENT: deferred Neurological exam: PRESENT: alert, awake, oriented to person, oriented to place , oriented to time, oriented to situation, CN II-XII grossly intact Psychiatric exam: PRESENT: appropriate affect, normal mood Skin exam: PRESENT: dry, intact, warm Results Laboratory Results: 09/14/17 04:45 09/14/17 04:45 09/14/17 09/14/17 04:45 04:45 WBC 5.5 RBC 4.06 L Hgb 12.6 L Hct 36.8 L MCV 90 MCH 31.0 MCHC 34.3 RDW 14.6 H Plt Count 134 L Seg Neutrophils % 57.5 Lymphocytes % 32.0 Monocytes % 8.4 Eosinophils % 1.7 Basophils % 0.4 Absolute Neutrophils 3.2 Absolute Lymphocytes 1.8 Absolute Monocytes 0.5 Absolute Eosinophils 0.1 Absolute Basophils 0.0 Sodium 141.1 Potassium 4.0 Chloride 105 Carbon Dioxide 26 Anion Gap 10 BUN 37 H Creatinine 1.99 H Est GFR ( Amer) 40 L Est GFR (Non-Af Amer) 33 L Glucose 132 H Calcium 8.6 Total Bilirubin 0.6 AST 20 ALT 28 Alkaline Phosphatase 47 Total Protein 6.3 Albumin 3.1 L 09/12/17 09/12/17 09/12/17 12:44 12:44 17:45 Creatine Kinase 74 71 CK-MB (CK-2) 0.56 Troponin I < 0.012 09/12/17 09/12/17 09/12/17 17:45 22:35 22:35 Creatine Kinase 73 CK-MB (CK-2) 0.51 0.41 Troponin I < 0.012 < 0.012 Impressions: Head CT 09/12/17 04:53 IMPRESSION: Chronic left maxillary sinusitis with fungal superinfection. Chest X-Ray 09/12/17 04:54 IMPRESSION: No acute cardiopulmonary findings. Head MRI 09/12/17 08:00 IMPRESSION: No MR evidence of acute ischemic change, acute intracranial hemorrhage, mass effect, or midline shift. origin of both posterior cerebral arteries. Right vertebral artery demonstrates no evidence of flow at the skullbase. Left vertebral artery flows into a diffusely small basilar loop with two approximate 50% tandem stenoses. EVIDENCE OF ACUTE STROKE: NO. Brain MRI with MRA 09/12/17 08:01 IMPRESSION: No MR evidence of acute ischemic change, acute intracranial hemorrhage, mass effect, or midline shift. origin of both posterior cerebral arteries. Right vertebral artery demonstrates no evidence of flow at the skullbase. Left vertebral artery flows into a diffusely small basilar loop with two approximate 50% tandem stenoses. EVIDENCE OF ACUTE STROKE: NO. Carotid Doppler Study 09/14/17 00:00 IMPRESSION: No hemodynamically significant stenosis. There is slight increase in velocity in the proximal right common carotid artery. Qualifiers - * PATIENT BEING DISCHARGED WITH ANY OF THE FOLLOWING DIAGNOSIS: No
[2017-09-14 17:58] VITALS: BP 147/69
[2017-09-14] MEDS: LATANOPROST 0.005% OPH SOLN 2.5 ML OD SCH (18:26)
--- NOTE | 2017-09-14 19:04 | XCELERA REPORT ---
[address] [address] Transthoracic Echocardiogram Report Name: NAN SUAZO Age: 77 yrs Gender: Male : 1940 Patient Status: Inpatient Patient Location: [address] [place] [address] Study Date: 09/14/2017 09:39 AM Procedure: A two-dimensional transthoracic echocardiogram with color flow and Doppler was performed. Poor endocardial visualisation.Poor valvylar and doppler interogation. Study Quality: Technically suboptimal. Reason For Study: TIA History: TIA. Ordering Physician: JACQUE NEWBY Performed By: Serina Muir Interpretation Summary Probably normal LV size,wall thickness and LVEF.Probabaly no defenite regional wall motion abnormality , but cannot entirely exclude wall motion abnormality. Probably no valvular stenotic or regurgitant lesions.Strongly recommend MANISH. No other interpretation possible. MMode/2D Measurements & Calculations RVDd: 3.4 cm LVIDd: 5.3 cm FS: 30.3 % LVOT diam: 2.0 cm IVSd: 1.8 cm LVIDs: 3.7 cm EDV(Teich): 134.1 ml LVOT area: 3.1 cm2 LVPWd: 1.3 cm ESV(Teich): 57.3 ml EF(Teich): 57.3 % Doppler Measurements & Calculations MV E max srinath: MV dec slope: Ao V2 max: LV V1 max P.5 cm/sec 269.2 cm/sec2 131.0 cm/sec 4.1 mmHg MV A max srinath: MV dec time: Ao max PG: LV V1 max: 124.7 cm/sec 0.28 sec 6.9 mmHg 100.6 cm/sec MV E/A: 0.61 GIUSEPPE(V,D): 2.4 cm2 PA V2 max: 86.7 cm/sec PA max P.0 mmHg Left Ventricle Probably normal LV size,wall thickness and LVEF.Probabaly no defenite regional wall motion abnormality , but cannot entirely exclude wall motion abnormality. Probably no valvular stenotic or regurgitant lesions.Strongly recommend MANISH. No other interpretation possible. : JACQUE NEWBY > Oralia Luna
[2017-09-15] MEDS ORDERED: ERGOCALCIFEROL (VITAMIN D2) 50000 UNIT (1.25 MG) CAPSULE PO SCH (10:00)
== END 2017-09-14 18:55 | disposition home or self-care (01) ==
LOC: ER 04:18 → INTOOBSV 07:57 → EH 07:57 → 3W 10:13
PROVIDERS: ADMIT Internal Medicine; ATTEND Internal Medicine
DX: I65.01 Occlusion and stenosis of right vertebral artery (principal); J32.0 Chronic maxillary sinusitis; G45.9 Transient cerebral ischemic attack, unspecified; I12.9 Hypertensive chronic kidney disease with stage 1 through stage 4 chronic kidney disease, or unspecified chronic kidney disease; E11.22 Type 2 diabetes mellitus with diabetic chronic kidney disease; N18.3 Chronic kidney disease, stage 3 (moderate); H91.92 Unspecified hearing loss, left ear; I44.0 Atrioventricular block, first degree; I44.4 Left anterior fascicular block; R26.81 Unsteadiness on feet; R53.1 Weakness; G25.89 Other specified extrapyramidal and movement disorders; Z79.899 Other long term (current) drug therapy; Z79.84 Long term (current) use of oral hypoglycemic drugs; Z86.73 Personal history of transient ischemic attack (TIA), and cerebral infarction without residual deficits
CPT/HCPCS: 93005; 99285; 36415 ×3; 82553; 82962 ×3; 82550; 85025 ×3; 85610; 85730; 80053 ×3; 81001; 84484; 93306; 93880; 70551; 70544; 71045; 70450; 93010; 97166; A9270 ×24; J1650 ×3; J3490 ×6; G8987; G8988; G8989; J1815